=== PATIENT | male | born 1990 | race Caucasian/White ===

== ENCOUNTER 2021-09-25 04:18 | Emergency (ER) | payer OTHER, SELFPAY ==
--- NOTE | ~2021-09-25 | XR_ITS ---
XR hand RT min 3V DATE: 09/25/2021 05:20 INDICATION: Scrapes of the medial hand. Prior injury. Pain. TECHNIQUE: 3 views COMPARISON: None FINDINGS: No fracture or dislocation, periosteal reaction or bone destruction or other significant [place] or soft tissue abnormality. IMPRESSION: Negative Reviewed, dictated and finalized at location A. [employer] HELPER IMPRESSION: Negative
[2021-09-25 04:30] VITALS: BP 130/85; PULSE 81; RESP 14; TEMP 36.9; O2SAT 100
--- NOTE | 2021-09-25 04:48 | ED.GENADULT ---
HPI - General Adult General Chief complaint: Anxiety Stated complaint: confusion- abx not being taken Time Seen by Provider: 09/25/21 04:27 Source: patient and EMS Mode of arrival: EMS Limitations: no limitations History of Present Illness HPI narrative: Patient is a 31-year-old male brought in by EMS after a household member at his house called 911 due to him punching the hooper. Patient states that he got an argument with his mother and that is why he started doing it. Patient states that he is disappointed that his nephew had to see the episode. Patient admits to drinking a little bit of alcohol tonight. Patient denies any thoughts of hurting himself or others. Patient adamantly denies any suicidal or homicidal ideations. Related Data Allergies Allergy/AdvReac Type Severity Reaction Status Date / Time NKDA Allergy Mild Uncoded 12/09/07 14:20 Review of Systems Review of Systems: All systems reviewed & are unremarkable except as noted in HPI and below Constitutional: Constitutional: Denies body ache(s), Denies chills, Denies excessive sweating, Denies fatigue, Denies fever(s), Denies headache(s), Denies lethargy, Denies malaise, Denies weakness and Denies weight loss Eyes: Eyes: Denies blurry vision, Denies change in vision and Denies loss of vision ENT: Denies dizziness, Denies ear discharge, Denies headache(s), Denies lip swelling, Denies epistaxis, Denies nasal congestion, Denies neck pain, Denies throat swelling and Denies tongue swelling Cardiovascular: Cardiovascular: Denies chest pain, Denies chest pain at rest, Denies chest pain with activity, Denies diaphoresis, Denies rapid heart rate, Denies edema, Denies irregular heart rhythm, Denies lightheadedness, Denies palpitations, Denies dyspnea and Denies dyspnea on exertion Respiratory: Respiratory: Denies chest congestion, Denies cough, Denies hemoptysis, Denies dyspnea and Denies dyspnea on exertion Gastrointestinal: Gastrointestinal: Denies abdominal pain, Denies melena, Denies hematochezia, Denies diarrhea, Denies nausea, Denies vomiting and Denies hematemesis Musculoskeletal: Musculoskeletal: Denies abnormal gait, Denies deformity, Denies joint swelling, Denies limited range of motion, Denies neck pain and Denies numbness Neurologic: Denies Abnormal speech present, Denies abnormal gait, Denies confusion, Denies dizziness, Denies headache(s), Denies focal weakness, Denies loss of vision, Denies numbness, Denies Other visual disturbances, Denies Sensory deficit (Neuro) and Denies weakness Psychiatric: Psychiatric: Denies confusion, Denies depression, Denies auditory hallucinations, Denies homicidal ideation and Denies suicidal ideation Endocrine: Endocrine: Denies cold intolerance, Denies excessive sweating, Denies fatigue, Denies heat intolerance and Denies palpitations Hematologic/Lymphatic: Hematologic/Lymphatic: Denies easy bleeding and Denies easy bruising Allergic/Immunologic: Allergic/Immunologic: Denies lip swelling, Denies throat swelling and Denies tongue swelling PMFSH Family History Family History Mother Hypertension Sibling Family history of malignant neoplasm of cervix Other Diabetes mellitus Family history of coronary artery disease Social History Social History Alcohol intake: current Substance use type: does not use Comments Past medical history: None Social history: Positive for smoker, occasional EtOH use, occasional drug use Exam Const: General: cooperative, healthy appearing, comfortable, no acute distress, well developed, alert and awake; No confusion Orientation/consciousness: oriented to person, oriented to place, oriented to time, patient oriented x3 and No confusion Limitations: no limitations HENMT: Head: normal to inspection, normocephalic and atraumatic Ears: hearing grossly normal bilaterally, TM normal on the
[2021-09-25 06:17] VITALS: BP 126/63; PULSE 69; RESP 14; O2SAT 100
--- NOTE | 2021-09-25 06:19 | PC.NURSE ---
Rn spoke to Brenda mother of patient RN called to get ride. Mother will come to hospital but wants pt admitted to a psych hospital.
[2021-09-25 06:59] VITALS: BP 123/77; PULSE 68; RESP 16; O2SAT 98
== END 2021-09-25 07:01 | disposition home or self-care (01) ==
LOC: ANHED 05:39
PROVIDERS: Emergency Provider Emergency Medicine; PCP Emergency Medicine
DX: R45.4 Irritability and anger (principal); S66.911A Strain of unspecified muscle, fascia and tendon at wrist and hand level, right hand, initial encounter; W22.09XA Striking against other stationary object, initial encounter
CPT/HCPCS: 73130; 99283